=== PATIENT | female | born 1930 | race Caucasian/White ===

== ENCOUNTER 2020-04-12 19:01 | Emergency (ER) | payer MEDICARE ==
[~2020-04-12] VITALS: Ht 157.5 cm; Wt 75.0 kg
[2020-04-12] MEDS ORDERED: SODIUM CHLORIDE FLUSH 10ML SYR IVF ONE (20:00)
[2020-04-12 22:09] VITALS: BP 140/73
== END 2020-04-12 22:11 | disposition home or self-care (01) ==
LOC: ED 21:39
DX: S42.252A Displaced fracture of greater tuberosity of left humerus, initial encounter for closed fracture (principal); S42.212A Unspecified displaced fracture of surgical neck of left humerus, initial encounter for closed fracture; M79.89 Other specified soft tissue disorders; R00.9 Unspecified abnormalities of heart beat; G89.11 Acute pain due to trauma; M25.512 Pain in left shoulder; M79.622 Pain in left upper arm; W01.0XXA Fall on same level from slipping, tripping and stumbling without subsequent striking against object, initial encounter; Y93.89 Activity, other specified; Y92.098 Other place in other non-institutional residence as the place of occurrence of the external cause; Y99.8 Other external cause status
CPT/HCPCS: 29105; 71045; 93005; 99284

== ENCOUNTER 2020-07-25 15:05 | Inpatient (IN) | payer MEDICARE ==
[~2020-07-25] VITALS: Ht 157.5 cm; Wt 72.4 kg
[~2020-07-25 15:05] MED LIST: CARV6.2512 PO; DOCU-186 PO; MELA5TAB14 PO; TRAM50TA2 PO
--- NOTE | 2020-07-25 15:17 | NUR ---
BIB EMS FOR C/O FLU DANIELLE SX STARTED YESTERDAY AFTER PT GOT 2ND COVID SAHOT YESTERDAY. PT ALSO HAS C/O R UPPER ARM/SHOULDER PAIN. PT STATES GLF. STATES "I FALL ALL THE TIME". ALSO SHOWING S/SX FAILURE TO THRIVE. 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 PT RESTING ON GURNEY. NADN. MONITORS APPLIED. VSS. WARM BLANKET PROVIDED.
--- NOTE | 2020-07-25 15:23 | NUR ---
[facility] PERFORMED. PT NOTED TO HAVE EXTREMELY HEAVY, WET, MALODOROUS BRIEF. UNKNOWN HOW LONG PT HAS HAD BRIEF ON. BRITTNEY COTTER STUDENT MADE AWARE.
[2020-07-25 17:01] LABS: MICROSCOPIC INDICATED
[2020-07-25 17:03] LABS: BASOPHILS % (AUTO) 1 % (0-1); EOSINOPHILS % (AUTO) 0 % (1-7); LYMPHOCYTES % (AUTO) 8 % (22-44); MEAN CORPUSCULAR HEMOGLOBIN 32.6 pg (27.0-34.8); MEAN CORPUSCULAR HGB CONC 33.1 g/dL (32.4-35.8); MEAN PLATELET VOLUME 9.1 fL (7.4-10.4); MONOCYTES % (AUTO) 15 % (2-9); NEUTROPHILS % (AUTO) 76 % (42-75); PLATELET COUNT 319 x10^3/uL (130-400); RED BLOOD COUNT 3.59 x10^6/uL (3.82-5.3); RED CELL DISTRIBUTION WIDTH 14.3 % (9.6-15.2)
[2020-07-25 17:08] LABS: MD NO
[2020-07-25 17:16] LABS: ALANINE AMINOTRANSFERASE 12 U/L (12-78); ALBUMIN 3.3 g/dL (3.4-5.0); ANION GAP 6 mmol/L (5-15); CALCIUM 8.6 mg/dL (8.5-10.1); CHLORIDE 110 mmol/L (98-107)
[2020-07-25 17:18] LABS: ALKALINE PHOSPHATASE 81 U/L (45-117); BILIRUBIN,TOTAL 0.7 mg/dL (0.2-1.0)
[2020-07-25] MEDS ORDERED: CEFTRIAXONE 2 GM in DEXTROSE 5% 50 ML IVPB ONE (17:30)
--- NOTE | 2020-07-25 17:33 | NUR ---
PT REFUSING CT DESPITE EDUCATION STATING "I DON'T NEED IT. I FELL THAT'S IT I KNOW I DON'T HAVE ANYTHING WRONG AND I DON'T NEED IT". Addendum: 07/25/20 at [address] CALLES NOTIFIED.
--- NOTE | 2020-07-25 18:24 | NUR ---
PT RESTING ON GURNEY. NADN. BA.
[2020-07-25] MEDS ORDERED: SODIUM CHLORIDE FLUSH 10ML SYR IVF PRN (18:30)
--- NOTE | 2020-07-25 19:13 | NUR ---
REPORT GIVEN TO NEYMAR VALVERDE RN. ALL QUESTIONS ANSWERED. AWAITING PT TRANSPORT.
--- NOTE | 2020-07-25 19:20 | NUR ---
PT RESTING ON GURNEY. NADN. BA.
--- NOTE | 2020-07-25 19:35 | NUR ---
PT PROVIDED W/ DINNER TRAY. PT RESTING ON STEPHENIE.
[2020-07-25] MEDS ORDERED: DOCUSATE 100 MG CAPSULE PO PRN (21:00)
[2020-07-25] MEDS ORDERED: ENALAPRILAT 1.25 MG/ML, 2ML IVPush PRN (21:00)
[2020-07-25] MEDS ORDERED: LIDODERM 5% PATCH TD PRN (21:00)
[2020-07-25 21:51] VITALS: BP 153/77
[2020-07-25] MEDS: HEPARIN 5,000 UNITS/ML, 1ML SQ SCH (22:26)
[2020-07-25] MEDS: ACETAMINOPHEN 325 MG TABLET PO PRN (22:26)
[2020-07-26 00:29] VITALS: BP 131/56
[2020-07-26] MEDS: HEPARIN 5,000 UNITS/ML, 1ML SQ SCH ×3 (05:15→21:19)
[2020-07-26 05:29] LABS: MEAN CORPUSCULAR HEMOGLOBIN 33.2 pg (27.0-34.8); PLATELET COUNT 261 x10^3/uL (130-400); RED BLOOD COUNT 3.15 x10^6/uL (3.82-5.3)
[2020-07-26 05:30] LABS: MD YES
[2020-07-26 05:35] LABS: ANION GAP 5 mmol/L (5-15); CALCIUM 7.8 mg/dL (8.5-10.1); CHLORIDE 109 mmol/L (98-107)
[2020-07-26 05:48] LABS: CREATININE 0.91 mg/dL (0.55-1.02)
[2020-07-26 05:54] VITALS: BP 128/68
[2020-07-26] MEDS: CARVEDILOL 3.125 MG TABLET PO SCH ×2 (05:58→18:40)
[2020-07-26 06:03] LABS: FREE T4 (FREE THYROXINE) 0.99 ng/dL (0.76-1.46)
[2020-07-26 06:27] LABS: BAND#(MANUAL) 0.16 x10^3/uL; BANDS%(MANUAL) 2 % (0-7); EOS#(MANUAL) 0.33 x10^3/uL (0.0-0.4); EOS% (MANUAL) 4 % (1-7); LYMPH#(MANUAL) 1.31 x10^3/uL (1-3.4); LYMPHS% (MANUAL) 16 % (22-44); MONOS#(MANUAL) 0.98 x10^3/uL (0.3-2.7); MONOS% (MANUAL) 12 % (2-9); REACTIVE LYMPHS # (MANUAL) 0.08 x10^3/uL (0-0); REACTIVE LYMPHS % (MANUAL) 1 % (0-0); SEG#(MANUAL) 5.33 x10^3/uL (1.8-6.8); SEGS% (MANUAL) 65 % (42-75)
[2020-07-26 06:29] LABS: <RBC MORPHOLOGY> NORMAL
[2020-07-26 06:30] LABS: <PLATELET ESTIMATE> ADEQUATE; <PLT MORPHOLOGY> NORMAL PLT MORPH
[2020-07-26 07:40] VITALS: BP 114/69
[2020-07-26 13:21] VITALS: BP 123/66
[2020-07-26] MEDS: CEFTRIAXONE 2 GM in DEXTROSE 5% 50 ML IVPB SCH (18:31)
[2020-07-26 19:33] VITALS: BP 131/65
[2020-07-26] MEDS: ACETAMINOPHEN 325 MG TABLET PO PRN (21:19)
[2020-07-26] MEDS: MELATONIN 5 MG TABLET PO PRN (21:19)
[2020-07-27 04:01] VITALS: BP 146/72
[2020-07-27] MEDS: HEPARIN 5,000 UNITS/ML, 1ML SQ SCH ×3 (04:16→20:18)
[2020-07-27] MEDS: CARVEDILOL 3.125 MG TABLET PO SCH ×3 (05:54→18:32)
[2020-07-27 06:04] LABS: BASOPHILS % (AUTO) 1 % (0-1); EOSINOPHILS % (AUTO) 1 % (1-7); LYMPHOCYTES % (AUTO) 16 % (22-44); MD NO; MEAN CORPUSCULAR HEMOGLOBIN 33.1 pg (27.0-34.8); MEAN CORPUSCULAR HGB CONC 33.5 g/dL (32.4-35.8); MEAN PLATELET VOLUME 9.3 fL (7.4-10.4); MONOCYTES % (AUTO) 16 % (2-9); NEUTROPHILS % (AUTO) 66 % (42-75); PLATELET COUNT 249 x10^3/uL (130-400); RED BLOOD COUNT 3.23 x10^6/uL (3.82-5.3); RED CELL DISTRIBUTION WIDTH 13.8 % (9.6-15.2)
[2020-07-27 06:15] LABS: ALBUMIN 2.6 g/dL (3.4-5.0); ANION GAP 5 mmol/L (5-15); CALCIUM 8.3 mg/dL (8.5-10.1); CHLORIDE 108 mmol/L (98-107)
[2020-07-27 06:19] LABS: ALANINE AMINOTRANSFERASE 10 U/L (12-78); ALKALINE PHOSPHATASE 69 U/L (45-117); BILIRUBIN,TOTAL 0.4 mg/dL (0.2-1.0); TOTAL PROTEIN 6.8 g/dL (6.4-8.2)
[2020-07-27 06:55] VITALS: BP 116/67
[2020-07-27 14:31] VITALS: BP 117/74
[2020-07-27 18:31] VITALS: BP 110/58
[2020-07-27] MEDS: CEFTRIAXONE 2 GM in DEXTROSE 5% 50 ML IVPB SCH (18:31)
[2020-07-27 19:48] VITALS: BP 115/59
[2020-07-27] MEDS: MELATONIN 5 MG TABLET PO PRN (20:18)
[2020-07-28 01:56] VITALS: BP 134/71
[2020-07-28] MEDS: HEPARIN 5,000 UNITS/ML, 1ML SQ SCH ×3 (05:33→21:46)
[2020-07-28] MEDS: CARVEDILOL 3.125 MG TABLET PO SCH ×2 (05:33→18:15)
[2020-07-28 07:42] VITALS: BP 122/65
[2020-07-28 13:34] VITALS: BP 119/70
[2020-07-28 18:14] VITALS: BP 138/68
[2020-07-28] MEDS: CEFTRIAXONE 2 GM in DEXTROSE 5% 50 ML IVPB SCH (18:16)
[2020-07-28 18:42] VITALS: BP 127/73
[2020-07-28] MEDS: MELATONIN 5 MG TABLET PO PRN (21:45)
[2020-07-29 00:48] VITALS: BP 136/70
[2020-07-29] MEDS: CARVEDILOL 3.125 MG TABLET PO SCH ×2 (05:51→16:57)
[2020-07-29] MEDS: HEPARIN 5,000 UNITS/ML, 1ML SQ SCH ×3 (05:52→20:39)
[2020-07-29 07:15] VITALS: BP 122/55
[2020-07-29 14:32] VITALS: BP 119/69
[2020-07-29 16:56] VITALS: BP 141/65
[2020-07-29 18:43] VITALS: BP 128/67
[2020-07-30 02:02] VITALS: BP 149/69
[2020-07-30] MEDS: HEPARIN 5,000 UNITS/ML, 1ML SQ SCH ×2 (05:34→13:00)
[2020-07-30] MEDS: CARVEDILOL 3.125 MG TABLET PO SCH (05:34)
[2020-07-30 07:12] VITALS: BP 130/77
[2020-07-30] MEDS ORDERED: TRAM50TA2 PO (12:50)
[2020-07-30] MEDS ORDERED: LIDO700A20 TD (12:50)
[2020-07-30 14:55] VITALS: BP 147/77
== END 2020-07-30 16:03 | DRG 563 ==
LOC: ED 18:00 → EDIP 18:11 → ED 18:12 → 4NW 20:30
PROVIDERS: ADMIT Emergency Medicine; ATTEND Hospitalist
DX: S42.211A Unspecified displaced fracture of surgical neck of right humerus, initial encounter for closed fracture (principal); N39.0 Urinary tract infection, site not specified; B96.20 Unspecified Escherichia coli [E. coli] as the cause of diseases classified elsewhere; I10 Essential (primary) hypertension; I48.0 Paroxysmal atrial fibrillation; S80.212A Abrasion, left knee, initial encounter; S80.211A Abrasion, right knee, initial encounter; W18.39XA Other fall on same level, initial encounter; I87.2 Venous insufficiency (chronic) (peripheral); R29.6 Repeated falls; Z66 Do not resuscitate; Z82.49 Family history of ischemic heart disease and other diseases of the circulatory system; Z90.710 Acquired absence of both cervix and uterus; Z91.81 History of falling; Z90.49 Acquired absence of other specified parts of digestive tract; Y93.89 Activity, other specified; Y92.89 Other specified places as the place of occurrence of the external cause; Y99.8 Other external cause status; R41.81 Age-related cognitive decline
CPT/HCPCS: 36415; 80048; 80053; 80320; 81001; 83735; 84439; 84443; 85025; 87077; 87086; 87186; 96374; 99285; G0378; J0696; J1644; G0480